=== PATIENT | female | born 2000 | race Caucasian/White ===

== ENCOUNTER 2022-04-30 02:30 | Outpatient (CLI) | payer MEDICAID, SELFPAY ==
[2022-04-30 14:22] LABS: HCT 42.8 % (36.0-46.0); HGB 14.1 g/dL (11.2-15.7); MCH 28.1 pg (27.0-33.0); MCHC 32.9 % (32.0-36.0); MCV 85 fL (80-95); MPV 9.3 fL (8.0-11.0); Platelet Count 335 10^3/uL (130-400); RBC 5.01 10^6/uL (3.93-5.22); RDW-SD 40.4 fL; WBC 11.62 10^3/uL (4.4-10.8)
[2022-04-30 14:53] LABS: ALT 50 U/L (14-59); AST 22 U/L (15-37); Albumin 3.9 g/dL (3.4-5.0); Alkaline Phosphatase 80 U/L (46-116); Anion Gap 8.6 mmol/L (3-11); BUN 12 mg/dL (7-18); Bilirubin, Total 0.4 mg/dL (0.2-1.0); CO2 27.4 mmol/L (21.0-32.0); CREATININE 0.8 mg/dL (0.55-1.02); Calcium 9.2 mg/dL (8.5-10.1); Calculated LDL 45 mg/dL (<100); Chloride 101 mmol/L (98-107); Cholesterol 121 mg/dL (<200); Glucose 91 mg/dL (74-106); HDL Cholesterol 35 mg/dL (40-60); Sodium 137 mmol/L (136-145); TSH (W/Ref FT4) 1.43 uIU/mL (0.36-3.74); Total Protein 7.5 g/dL (6.4-8.2); Triglyceride 207 mg/dL (<150)
== END 2022-04-30 02:31 | disposition home or self-care (01) ==
PROVIDERS: PCP Nurse Practitioner; Visit Provider Nurse Practitioner
DX: I10 Essential (primary) hypertension (principal); F90.9 Attention-deficit hyperactivity disorder, unspecified type; R51.9 Headache, unspecified; E66.8 Other obesity; Z72.0 Tobacco use; Z83.3 Family history of diabetes mellitus
CPT/HCPCS: 36415; 80053; 80061; 85027; 84443

== ENCOUNTER 2022-05-11 17:27 | Outpatient (REF) | payer MEDICAID, SELFPAY | END 2022-05-11 17:28 | disposition home or self-care (01) | LOC: LBN 17:27 | PROVIDERS: PCP Nurse Practitioner; Visit Provider Nurse Practitioner Family | DX: L03.115 Cellulitis of right lower limb; L98.8 Other specified disorders of the skin and subcutaneous tissue | CPT/HCPCS: 87077; 87070; 87186; 87205 ==

== ENCOUNTER 2025-05-08 02:50 | Outpatient (CLI) | payer OTHER, SELFPAY ==
[2025-05-08 15:46] LABS: HCT 43.8 % (36.0-46.0); HGB 14.4 g/dL (11.2-15.7); MCH 28.2 pg (27.0-33.0); MCHC 32.9 % (32.0-36.0); MCV 86 fL (80-95); MPV 9.2 fL (8.0-11.0); Platelet Count 353 10^3/uL (130-400); RBC 5.11 10^6/uL (3.93-5.22); RDW 12.4 % (11.7-14.6); RDW-SD 38.6 fL; WBC 10.29 10^3/uL (4.4-10.8)
[2025-05-08 15:51] LABS: ESR 5 mm/hr (0-20)
[2025-05-08 16:02] LABS: Hemoglobin A1C 5.4 % (<5.7)
[2025-05-08 16:22] LABS: ALT 37 U/L (14-59); AST 17 U/L (15-37); Albumin 4.1 g/dL (3.4-5.0); Alkaline Phosphatase 77 U/L (46-116); Anion Gap 10.1 mmol/L (3-11); BUN 11 mg/dL (7-18); Bilirubin, Total 0.5 mg/dL (0.2-1.0); C-Reactive Protein 2.29 mg/dL (<or=0.5); CO2 27.9 mmol/L (21.0-32.0); Calcium 10.1 mg/dL (8.5-10.1); Chloride 103 mmol/L (98-107); Estimated GFR 103.50 (mL/min/1.73m2); Glucose 111 mg/dL (74-106); Potassium 3.7 mmol/L (3.5-5.1); Sodium 141 mmol/L (136-145); TSH (W/Ref FT4) 1.51 uIU/mL (0.36-3.74); Total Protein 7.6 g/dL (6.4-8.2)
== END 2025-05-08 02:51 | disposition home or self-care (01) ==
LOC: LBO 02:51
PROVIDERS: Absent Provider Nurse Practitioner Family; PCP Nurse Practitioner; Referring Provider Nurse Practitioner Family; Visit Provider Nurse Practitioner Family
DX: R53.83 Other fatigue (principal); Z83.3 Family history of diabetes mellitus
CPT/HCPCS: 36415; 80053; 85027; 85652; 83036; 84443; 86140; 86431

== ENCOUNTER 2025-06-04 16:23 | Outpatient (CLI) | payer OTHER, SELFPAY ==
[2025-06-04 18:41] LABS: Uric Acid 6.3 mg/dL (2.6-6.0)
== END 2025-06-04 16:24 | disposition home or self-care (01) ==
LOC: LBO 16:23
PROVIDERS: PCP Nurse Practitioner; Visit Provider Nurse Practitioner Family
DX: M79.675 Pain in left toe(s) (principal)
CPT/HCPCS: 36415; 84550